=== PATIENT | male | born 1975 | race Caucasian/White ===

== ENCOUNTER → 2017-08-15 | Outpatient (CLI) | payer OTHER ==
[2017-08-15 22:58] LABS: CATECHOLAMINES-HRS COLLECTED 24 (())
[2017-08-15 23:46] LABS: CORTISOL RANDOM 7 ug/dL (3-20)
== END ==
LOC: COL.LAB 08-13 13:21
PROVIDERS: Internal Medicine Interventional Cardiology
DX: I10 Essential (primary) hypertension (principal)

== ENCOUNTER → 2017-08-19 | Outpatient (CLI) | payer OTHER ==
[2017-08-20 09:21] LABS: POTASSIUM 4.5 mmol/L (3.4-5.0)
[2017-08-20 09:23] LABS: URINE PROTEIN:CREAT RATIO 0.25 (0.00-0.14)
[2017-08-21 17:12] LABS: URINE TOTAL VOLUME 1975 mL
[2017-08-21 18:50] LABS: CREATININE, serum 0.56 mg/dL (0.66-1.25)
[2017-08-22 16:52] LABS: URINE CREATININE CLEARANCE 201.3 mL/min (97-137)
== END ==
LOC: COL.LAB 10:38
PROVIDERS: Internal Medicine Interventional Cardiology
DX: I10 Essential (primary) hypertension (principal)

== ENCOUNTER → 2017-09-25 | Outpatient (CLI) | payer OTHER ==
[2017-09-25 11:23] LABS: ALBUMIN 4.1 gm/dL (3.5-5.0); BILIRUBIN,TOTAL 0.7 mg/dL (0.0-1.0); CALCIUM 9.6 mg/dL (8.4-10.2); CHOLESTEROL RISK RATIO 7.1; CREATININE, serum 1.08 mg/dL (0.66-1.25); POTASSIUM 3.8 mmol/L (3.4-5.0); TOTAL PROTEIN 8.9 gm/dL (6.4-8.2)
== END ==
LOC: COL.LAB 09:50
PROVIDERS: Family Medicine
DX: E78.5 Hyperlipidemia, unspecified (principal)